=== PATIENT | female | born 2005 | race African-American/Black ===

== ENCOUNTER 2023-07-17 00:21 | Day surgery (SDC) | payer OTHER, SELFPAY ==
[2023-07-08 10:26] VITALS: BMI 31.4
--- NOTE | 2023-07-08 10:30 | PC.NURSE ---
Report to the Outpatient Waiting Room, entrance under the green pavilion located off [facility], at time 0600 on date 07/17/23. Planned Procedure Time: 0730. Time changes happen often and if your time is changed the preop area will call you the afternoon before. - You and your visitor will be asked to self-screen and do not enter if you have any COVID symptoms. - A mask is optional within the hospital at this time. Patients may have clear liquids (water, carbonated beverages, clear teas, apple juice) until 3 hours prior to surgery with a maximum of 20 ounces. - No food from midnight until time of surgery Take the following medications with a SIP of water the morning of surgery: N/A DO NOT STOP ANY OF YOUR OTHER PRESCRIPTION MEDICATIONS PRIOR TO SURGERY ?EXCEPT THE FOLLOWING Medications to discontinue per physician: N/A Date to take last dose: N/A Please no make-up, nail romanian, hairspray, perfume, deodorant, or body powder the day of surgery. No jewelry (including any body piercings) or valuables the day of surgery, leave them at home. Please take a shower or bath the night before, or the morning of, surgery with an antibacterial soap. Wear comfortable, loose fitting clothing. Children are encouraged to wear pajamas. - Jewelry must be removed prior to entering the operating room. Rings and piercings that are not removed may be cut off. - The hospital will not accept responsibility for valuables. - Please leave all valuables, including medications, at home the day of surgery. If you are going home after surgery, a licensed goat driver must drive you home. - NO public transportation without another adult if you receive anesthesia. - We recommend that an adult stay with you for 24 hours following discharge. - We also recommend that you do not drive, make important decision, drink alcoholic beverages, or take any drugs that were not prescribed by your health care provider for at least 24 hours after your discharge time. Follow any additional instructions given to you from your surgeon. If you or anyone in your household have experienced Covid symptoms in the past week, please notify your surgeon or the nurse liaison at the phone number below for possible testing. Telephone instructions given to PT - LAMAR VAZQUEZ and asked if any additional questions and then verbalized understanding. Patient advised to call surgeon office or pre surgery nurse liaison [phone] if any additional questions.
[2023-07-17] VITALS (9 sets, daily range): BP systolic 106–130; BP diastolic 53–85; PULSE 64–90; RESP 15–20; TEMP 36.1–36.8; O2SAT 100
[2023-07-17 06:36] LABS: Urine Cotinine NEGATIVE
[2023-07-17] MEDS: LACTATED RINGERS 1,000 ML 30 ML IV CONT ×2 (06:36→10:53)
[2023-07-17] MEDS: SCOPOLAMINE 1.5 MG PATCH TRANSDERM (06:38)
--- NOTE | 2023-07-17 07:02 | WPDANESEPPF ---
Anes - Initial Pre Proc Eval Procedure: Operation Date: 07/17/23 07:30 Proposed Procedures p Bilateral Breast Mastopexy with Galaflex - Augustine Da Silva MD Date/Time: 07/17/23 07:02 Surgeon: Augustine Da Silva MD Pre Op Diagnosis: Tripp Breast Ptosis Patient Data Age: 17 Gender: F Height: 1.68 m Weight: 87.9 kg Last Vital Signs Temp 36.8 C 07/17/23 06:49 Pulse 73 07/17/23 06:49 Resp 20 07/17/23 06:49 BP 116/53 L 07/17/23 06:49 Pulse Ox 100 07/17/23 06:49 O2 Del Method Room Air 07/17/23 06:49 Allergies Allergy/AdvReac Type Severity Reaction Status Date / Time No Known Allergies Allergy Verified 07/17/23 06:17 Home Medications Medication Instructions Recorded Confirmed Type No Home Medications 07/08/23 07/08/23 History Laboratory Tests 07/17/23 06:19 Cotinine Negative Patient hx anesthesia problems: none Family hx anesthesia problems: none Results Review: All pre-operative results and documents have been reviewed as part of the pre-operative evaluation. [facility] Past Medical History Medical History (Updated 07/17/23 @ 07:02 by Rich Rodríguez MD) Overweight Social History Social History Smoking status: Never smoker Alcohol intake: never Substance use: never Substance use type: does not use Living arrangements: with family Spiritual care concerns: No Anes - Eval Final PreProcedure Day of Procedure 07/17/23 07:02 Patient weight: overweight Heart: regular rate and rhythm Lungs: clear to auscultation Airway: Mallampati scale class II Neurological: alert and oriented Last oral intake: >/= 8 hours ASA classification: II Emergent: no Anesthesia type and monitoring: general LMA and standard monitoring Results Review: All pre-operative results and documents have been reviewed as part of the pre-operative evaluation. Informed Consent: The patient's anesthetic plan and its attendant risks and benefits were discussed with the patient/family/POA. Questions were solicited and answers provided to the satisfaction of the patient/family/POA.
--- NOTE | 2023-07-17 07:23 | P.OP_ITS ---
Procedure Note - Detailed Date of Procedure 07/17/23 Pre-op Diagnosis Tripp Breast Ptosis Post-op Diagnosis Same Procedure Performed Bilateral mastopexy with Galaflex and free NAC graft Surgeon Augustine Da Silva MD Anesthesia General Findings Inverted T Autoaugmentation Free nipple graft Galaflex REF# [id number] Description of Procedure She is here today for the above. Previously and again today the risks, benefits, alternatives were discussed in extensive detail. I wanted her to be very realistic about the risks involved as well as expectations. We discussed aftercare and what to monitor for. Discussed her nipple translocation distance is 18-20cm and the risks associated with such significant mastopexy. She is comfortable proceeding with free nipple grafting and understands what this means, risks of total loss, that she will not be able to breast feed, and that she will have no sensation and likely permanant color change. We outlined all her options in great detail which she was able to clearly repeat back. Made sure answered all of her questions to her satisfaction today and consent was obtained. Marked in the preoperative holding area with their verification. The patient was taken to the operating room placed supine on the operating table. Anesthesia was provided by anesthesiology. A surgical time-out was taken. She was prepped and draped in a standard sterile fashion. Eleven blade was utilized to make a stab incision and infiltrated with low volume tumescent solution. The breast was tailor tacked into place. I tailor tacked the breast into position. Placed her in a sitting position. Verified the nipple-areolar location based on preoperative planning as well as intraoperative observations and measurements in full agreement. She was placed supine. I excised the NAC and placed in saline. I then de-epithelialized the inferior breast tissue to create an autoaugmentation flap based on intercostal exchange administrator. I elevated medial and lateral tissue flaps as well for planned closure. The autoaugmentation flap was sutured to the chest wall with 2-0 PDS. Galaflex was soaking in betadine on the back table. It was trimmed and sutured into place with 2-0 Vicryl. Placed in a sitting position. Suction lipectomy based on S.A.F.E. technique with 4mm basket was completed bilaterally lateral to breast for contour. This was < 100 cc lipoaspirate. I closed along the IMF with 2-0 Stratafix. Along the vertical with 2-0 PDS. 3- 0 Monocryl along the vertical. 3-0 Stratafix along the IMF. I finally closed everything with running subcuticular 4-0 Monocryl. I deepithelialized the NAC location, defatted the deep surface, and sutured into place with 5-0 chromic. Bolster was created with xeroform and wet cotton. Sutured into place with 3-0 Nylon. Tissue glue was placed along incisions. Fluffs and surgical bra were placed. Estimated Blood Loss 75 Drains No Packing No Pathology None sent Complications No immediate complications Condition Stable Disposition PACU
--- NOTE | 2023-07-17 07:23 | WPDHPUPDATE1 ---
History and Physical Update Update Date/Time: 07/17/23 07:23 History and Physical has been reviewed, including an updated exam of the patient. There are NO changes in the patient's condition. Risks, benefits, and alternatives have been discussed and questions answered. Patient agrees to proceed with procedure.
[2023-07-17] MEDS: ceFAZolin 2 GM/D5W 50 ML 2 GM/50 ML BAG IVPB (07:30)
[2023-07-17] MEDS: TRANEXAMIC ACID 1,000MG/ISO100 1,000 MG/100 ML BAG 200 MG IVPB (07:40)
[2023-07-17] MEDS: LACTATED RINGERS IRRIG 1,000 ML, LIDOCAINE HCL 1% LOCAL INJ 50 ML, EPINEPHrine HCL INJ ... INFILTRATE (07:52)
--- NOTE | 2023-07-17 07:59 | SUR.OPER ---
Belly button ring found at time of surgical prep. Patient had denied any jewelry, but must have forgotten about belly piercing. Belly button ring removed and put in specimen cup to be sent with patient to PACU. Catheter and tegaderm used for belly butting piercing hole.
[2023-07-17] MEDS: NACL 0.9% IRRIG POUR BOTTLE 900 ML, GENTAMICIN SULFATE INJ 160 MG, ceFAZolin 2 GM, POVI... IRRIGATION (08:00)
[2023-07-17] MEDS: fentaNYL CITRATE INJ (*CRX) 100 MCG/2 ML VIAL 25 MCG IV PUSH ×3 (11:24→11:43)
--- NOTE | 2023-07-17 11:42 | SUR.PHASEI ---
1140: Simple mask removed.
[2023-07-17] MEDS: oxyCODONE HCL (*CRX) 5 MG TAB IR PO (12:26)
== END 2023-07-17 13:10 | disposition home or self-care (01) ==
PROVIDERS: Visit Provider Surgery Plastic and Reconstructive Surgery
PROC: (CPT 19316; principal; 2023-07-17 07:30)
DX: N64.81 Ptosis of breast (principal); Z80.3 Family history of malignant neoplasm of breast
CPT/HCPCS: 19316; 15777 ×2; 15877; 80307; A9270; J0171; J0690; J1100; J1170; J1200; J1580; J2250; J2405; J2704; J3010; J7120